=== PATIENT | male | born 1940 | race Caucasian/White ===

== ENCOUNTER 2017-11-26 07:39 | Day surgery (SDC) | payer MEDICARE, OTHER ==
[~2017-11-26] VITALS: Ht 177.8 cm; Wt 87.7 kg
[~2017-11-26 07:39] MED LIST: CLOP75 PO; FELO5CR PO; HYDSUL200 PO; LISI5 PO; PANT40 PO; RANI150 PO; SENN187 PO
== END 2017-11-26 11:56 | disposition home or self-care (01) ==
LOC: ORSCSDS 07:39
PROVIDERS: Internal Medicine Gastroenterology
PROC: 3E0H8GC Introduction of Other Therapeutic Substance into Lower GI, Via Natural or Artificial Opening Endoscopic (ICD-10-PCS; principal; 2017-11-26 09:00)
PROC: 0DBK8ZX Excision of Ascending Colon, Via Natural or Artificial Opening Endoscopic, Diagnostic (ICD-10-PCS; principal; 2017-11-26 09:00)
PROC: 0DBL8ZX Excision of Transverse Colon, Via Natural or Artificial Opening Endoscopic, Diagnostic (ICD-10-PCS; principal; 2017-11-26 09:00)
PROC: 0DBH8ZX Excision of Cecum, Via Natural or Artificial Opening Endoscopic, Diagnostic (ICD-10-PCS; principal; 2017-11-26 09:00)
DX: Z12.11 Encounter for screening for malignant neoplasm of colon (principal); D12.0 Benign neoplasm of cecum; D12.2 Benign neoplasm of ascending colon; D12.3 Benign neoplasm of transverse colon; Z86.010 Personal history of colon polyps; K57.30 Diverticulosis of large intestine without perforation or abscess without bleeding; Z86.73 Personal history of transient ischemic attack (TIA), and cerebral infarction without residual deficits; Z79.01 Long term (current) use of anticoagulants; Z79.899 Other long term (current) drug therapy
CPT/HCPCS: 88305; J0330; J1980; J2405; J7120

== ENCOUNTER 2019-04-18 08:14 | Day surgery (SDC) | payer MEDICARE, OTHER ==
--- NOTE | 2019-04-18 09:39 | NUR ---
IV DC'D INTACT. PT AMB OUT OF DEPARTMENT WITH STEADY GAIT.
== END 2019-04-18 09:37 | disposition home or self-care (01) ==
LOC: CT 08:14 → ORD 08:14 → CT 09:00 → ORD 09:37
DX: I42.9 Cardiomyopathy, unspecified (principal); I10 Essential (primary) hypertension; K21.9 Gastro-esophageal reflux disease without esophagitis; M19.90 Unspecified osteoarthritis, unspecified site; Z79.02 Long term (current) use of antithrombotics/antiplatelets; Z79.899 Other long term (current) drug therapy; Z91.018 Allergy to other foods
CPT/HCPCS: 75574; Q9967